=== PATIENT | male | born 1960 | race Caucasian/White ===

== ENCOUNTER 2021-09-14 14:24 | Emergency (ER) | payer BC ==
[~2021-09-14] VITALS: Ht 185.4 cm; Wt 103.6 kg
--- NOTE | 2021-09-14 14:43 | PHYS DOC ---
General Adult HPI: HPI: Patient is a 60-year-old male who is here with multiple complaints. He reports for the past several days he has felt like he has had ringing in his ears, he felt like his blood pressure was elevated because of the symptoms. He reports lightheadedness/dizziness. He denies fall, head injury or syncope. He denies chest pain, palpitations, dyspnea. He denies abdominal pain, nausea, vomiting. He also reports that for the last hour he has had tingling in his entire right arm. He reports that "I might have a little tingling in my right thigh." He denies facial droop, vision disturbance, headache, vertigo, motor weakness. He denies complete numbness. He has not seen a physician in at least 4 or 5 years. He has no known medical problems, takes no medications reportedly. Review of Systems: Review of Systems: Constitutional: Denies fever or chills Eyes: Denies change in visual acuity HENT: Denies nasal congestion or sore throat Respiratory: Denies cough or shortness of breath Cardiovascular: Denies chest pain, edema, palpitations GI: Denies abdominal pain, nausea, vomiting : Denies urinary symptoms Musculoskeletal: Denies back pain or joint pain Integument: Denies rash Neurologic: Denies headache. He reports dizziness/lightheadedness. He reports tingling of his right arm and right thigh. Denies focal motor weakness. Denies numbness. Denies syncope or near syncope. Psychiatric: Denies depression or anxiety Physical Exam: PE: Constitutional: Well developed, well nourished, no acute distress, non-toxic appearance. [] HENT: Normocephalic, atraumatic, oropharynx is patent and clear. No facial or oral trauma, no asymmetry, no edema or erythema. Eyes: PERRL, EOMI, conjunctiva normal, no discharge. No nystagmus. Sclera are anicteric. Neck: Normal range of motion, no tenderness, supple, no stridor. Trachea is midline. No meningismus. Cardiovascular: Bradycardic, irregular, +2 radial and +2 posterior tibial pulses bilaterally. Lungs & Thorax: Clear to auscultation bilateral without rales, rhonchi or wheezes. Abdomen: Abdomen is soft, nondistended, nontender to palpation. No palpable pulsatile mass. No CVA tenderness. Skin: Warm, dry, no erythema, no rash. [] Back: No tenderness, no CVA tenderness. [] Extremities: No tenderness, no cyanosis, no clubbing, ROM intact, no edema. No calf tenderness. Neurologic: He is awake, alert, oriented x3. Cranial nerves II through XII grossly intact. 5 out of 5 motor strength all 4 extremities. Sensation is grossly intact. Gross visual vásquez are normal. Speech is clear and fluent. No limb ataxia. No dysmetria. NIH = 0. Psychologic: Mildly anxious, cooperative EKG: EKG: EKG is interpreted at 1441 Rhythm is second degree AV block Rate is 46 bpm Axix is left No acute ischemia No STEMI EKG is interpreted 1614 Rhythm is second degree AV block Rate is 38 bpm Ross is normal No STEMI EKG is interpreted at 1723 Rhythm is second degree AV block Rate is 36 bpm Ross is normal No STEMI Radiology/Procedures: Radiology/Procedures: IMAGING REPORT Signed PATIENT: SHELL ROONEY RACCOUNT: [id number] : 1960 LOCATION: ER AGE: 60 SEX: M EXAM STATUS: PRE ER ORD. PHYSICIAN: TALA DORANTES DO REASON: R arm tingling PROCEDURE: CT CODE STROKE HEAD WO EXAMINATION: CT STROKE HEAD W/O CLINICAL HISTORY: Code stroke, right arm tingling. TECHNIQUE: Serial axial images without IV contrast were obtained from the vertex to the foramen magnum. CT Dose Reduction Employed: One or more of the following individualized dose reduction techniques were utilized for this examination: 1. Automated exposure control 2. Adjustment of the mA and/or kV according to patient size 3. Use of iterative reconstruction technique. COMPARISON: None FINDINGS: Acute Change: No evidence of an acute infarct or other acute parenchymal process. Hemorrhage: No evidence of acute intracranial hemorrhage. Mass Lesion/Mass Effect: No evidence of intracranial mass or extraaxial fluid collection. No significant mass effect. Parenchyma: Mild generalized volume loss. Parenchyma otherwise within normal limits for age. Ventricles: Ventricles within normal limits for age. Paranasal Sinuses and Skull Base: Mild secretions in the ethmoid air cells. Visualized skull base and soft tissues unremarkable. IMPRESSION: No evidence of acute intracranial abnormality. Findings discussed with TALA DORANTES DO at 09/14/2021 3:06 PM. Electronically signed by: Reymundo Landaverde DO (09/14/2021 3:11 PM) [id number] DICTATED AND SIGNED BY: REYMUNDO LANDAVERDE DO DATE: 09/14/21 150 CC: TALA DORANTES DO; PCP,NO ~ IMAGING REPORT Signed PATIENT: SHELL ROONEY RACCOUNT: [id number] : 1960 LOCATION: ER AGE: 60 SEX: M EXAM STATUS: REG ER ORD. PHYSICIAN: TALA DORANTES DO REASON: dizziness PROCEDURE: PORTABLE CHEST 1V AP chest. HISTORY: Dizziness AP view was taken of the chest. Lungs are free of infiltrates. Heart is normal in size. There is no effusion. IMPRESSION: 1. No acute chest disease. Electronically signed by: Fred Johnson MD (09/14/2021 3:15 PM) [id number] DICTATED AND SIGNED BY: FRED JOHNSON MD DATE: 09/14/211513 CC: TALA DORANTES DO; PCP,NO ~ Heart Score: C/O Chest Pain: No Risk Factors: Risk Factors: DM, Current or recent (<one month) smoker, HTN, HLP, family history of CAD, obesity. Risk Scores: Score 0 - 3: 2.5% MACE over next 6 weeks - Discharge Home Score 4 - 6: 20.3% MACE over next 6 weeks - Admit for Clinical Observation Score 7 - 10: 72.7% MACE over next 6 weeks - Early Invasive Strategies Course & Med Decision Making: Course & Med Decision Making Pertinent Labs and Imaging studies reviewed. (See chart for details) The patient is given p.o. aspirin. His NIH is 0. He continues to deny any pain, chest pain, dyspnea, palpitations. He has not had any episodes of dizziness here. He does appear to have a second-degree heart block on EKG, with heart rates ranging in the 30s to the 60s and even 70s on occasion. Serial rhythm strips and EKGs are performed. Review of telemetry was performed by me and the nursing staff several times, at one point it does appear that he may possibly have a type II second-degree block, but then I was able to review more rhythm strips and he does appear to have progressive CA prolongation before dropped beats. Nonetheless, he requires hospitalization and cardiology consultation, EP consultation and likely will require pacemaker. The patient is not a tPA candidate, NIH is 0. The patient and his family requested [facility] as their preferred center for transfer. I contacted [facility], the patient was accepted for admission there by Dr. Fred conklin. Shortly after the patient's arrival, expeditiously examined him, ascertained that he needed a stat CT of his head for stroke protocol, examined the EKG, ordered appropriate testing and evaluation, I explained to the patient almost immediately after arrival that he will require transfer. The patient's family became upset at the notion that he may have to wait a few hours in the ER in order to be transferred appropriately for direct admission at another facility that has cardiology and neurology services available. The patient stepdaughter came out to the charting area, she told me that she called 911 because she wants an ambulance to come here to the ER to take the patient to another hospital because she felt it was taking too long. She became verbally abusive to me, she began cursing at me, I attempted to verbally redirect her and calm her several times. I explained that EMS will not come continuous pickling line pickler the patient in the emergency department to be transferred to another facility. I explained that this is an EMTALA violation. I tried to reason with her multiple times, the patient became progressively more inappropriate, escalated and inappropriate and hostile behavior. Security was called, I asked that this person leave the emergency department as they are being overtly disruptive and obstructive to patient care and patient safety. On her way out, the patient loudly screamed at me "fuck you" and also yelled "you fucking psychopath." I had multiple discussions with the patient and his and other daughter regarding the stepdaughters behavior, I kindly but firmly explained that it is a privilege, not a right to be here in the emergency department as a visitor, the patient was unaware that his stepdaughter had called 911, it seems that she acted unilaterally and on her own in this regard. EMS of course called the ER and asked why someone was calling for transport from the ER, it was explained to them, they of course declined to come to the ER to transport the patient until appropriate transfer process was carried out. I have had multiple very lengthy discussions with the patient and his family regarding the findings, differential diagnosis and plan of care. At some juncture, the patient's and stepdaughter thought that the patient was having a heart attack, which was explicitly explained multiple times was not the case. I explicitly explained to the patient and his family that he was stable to await appropriate transfer. The nursing staff also discussed this with the family and the patient multiple times. Vinnieon Disclaimer: María Disclaimer: This electronic medical record was generated, in whole or in part, using a voice recognition dictation system. Departure Departure: Impression: Primary Impression: Second degree heart block Additional Impressions: Paresthesia of right upper extremity Dizziness Symptomatic bradycardia Disposition: 02 SHORT TERM HOSPITAL ([facility]) Admitting Physician: Other (Dr. Fred Conklin at [facility]) Condition: STABLE Referrals: PCP,NO (PCP) TALA DORANTES DO September 14, 2021 14:43
--- NOTE | 2021-09-14 15:13 | RAD ---
EXAMINATION: CT STROKE HEAD W/O CLINICAL HISTORY: Code stroke, right arm tingling. TECHNIQUE: Serial axial images without IV contrast were obtained from the vertex to the foramen magnu m. CT Dose Reduction Employed: One or more of the following individualized dose reduction techniques wer e utilized for this examination: 1. Automated exposure control 2. Adjustment of the mA and/or kV ac cording to patient size 3. Use of iterative reconstruction technique. COMPARISON: None FINDINGS: Acute Change: No evidence of an acute infarct or other acute parenchymal process. Hemorrhage: No evidence of acute intracranial hemorrhage. Mass Lesion/Mass Effect: No evidence of intracranial mass or extraaxial fluid collection. No signific ant mass effect. Parenchyma: Mild generalized volume loss. Parenchyma otherwise within normal limits for age. Ventricles: Ventricles within normal limits for age. Paranasal Sinuses and Skull Base: Mild secretions in the ethmoid air cells. Visualized skull base and soft tissues unremarkable. IMPRESSION: No evidence of acute intracranial abnormality. Findings discussed with TALA DORANTES DO at 09/14/2021 3:06 PM. Electronically signed by: Reymundo Mccarty DO (09/14/2021 3:11 PM) [id number]
[2021-09-14] MEDS ORDERED: ASPIRIN CHEWABLE 81 MG TABLET. PO ONE (15:15)
--- NOTE | 2021-09-14 15:18 | RAD ---
AP chest. HISTORY: Dizziness AP view was taken of the chest. Lungs are free of infiltrates. Heart is normal in size. There is no e ffusion. IMPRESSION: 1. No acute chest disease. Electronically signed by: Fred Johnson MD (09/14/2021 3:15 PM) [id number]
[2021-09-14 15:26] LABS: BASO % 1 % (0-3); EOS # 0.4 x10^3/uL (0.0-0.7); EOS % 4 % (0-3); HEMATOCRIT 43.4 % (39.0-53.0); HEMOGLOBIN 14.8 g/dL (13.0-17.5); LYMPH # 2.4 x10^3/uL (1.0-4.8); LYMPH % 28 % (24-48); MEAN CORPUSCULAR HEMOGLOBIN 32 pg (25-35); MEAN CORPUSCULAR HGB CONC 34 g/dL (31-37); MEAN CORPUSCULAR VOLUME 93 fL (79-100); MONO # 0.7 x10^3/uL (0.0-1.1); MONO % 9 % (0-9); NEUT % 59 % (31-73); PLATELET COUNT 190 x10^3/uL (140-400); RED BLOOD COUNT 4.65 x10^6/uL (4.30-5.70); RED CELL DISTRIBUTION WIDTH 13.3 % (11.5-14.5); WHITE BLOOD COUNT 8.5 x10^3/uL (4.0-11.0)
[2021-09-14 15:45] LABS: ALBUMIN 3.9 g/dL (3.4-5.0); ALBUMIN/GLOBULIN RATIO 1.3 (1.0-1.7); CALCIUM 9.2 mg/dL (8.5-10.1); MAGNESIUM 2.3 mg/dL (1.8-2.4); PHOSPHORUS 3.7 mg/dL (2.6-4.7); POTASSIUM 4.2 mmol/L (3.5-5.1); TOTAL BILIRUBIN 0.4 mg/dL (0.2-1.0); TOTAL PROTEIN 6.9 g/dL (6.4-8.2)
[2021-09-14 16:29] LABS: BACTERIA,URINE 0 /HPF (0-FEW); CLARITY,URINE CLEAR; COLOR,URINE YELLOW; GLUCOSE,URINE NEG (NEG); NITRITE,URINE NEG (NEG); RBC,URINE OCC /HPF (0-2); UROBILINOGEN,URINE 0.2 mg/dL (0.2 mg/dL); WBC,URINE 0 /HPF (0-4)
[2021-09-14 17:18] VITALS: BP 145/85
[2021-09-14] MEDS ORDERED: ATROPINE 0.5 MG/5 ML DISP.SYRIN. IV ONE (17:30)
== END 2021-09-14 17:40 | disposition short-term general hospital (02) ==
LOC: ER 14:24
DX: I44.1 Atrioventricular block, second degree (principal); R00.1 Bradycardia, unspecified; R20.2 Paresthesia of skin; R42 Dizziness and giddiness; H93.13 Tinnitus, bilateral; Z20.822 Contact with and (suspected) exposure to COVID-19
CPT/HCPCS: 36415; 70450; 71045; 80053; 81001; 82550; 83735; 84100; 84484; 85025; 87426; 93005; 96374; 99285; C9803; J0461; U0003